=== PATIENT | male | born 1985 | race African-American/Black ===

== ENCOUNTER 2020-09-26 08:06 | Outpatient (REF) | payer MEDICAID, SELFPAY | END 2020-09-26 08:07 | disposition home or self-care (01) | LOC: HO.LAB 08:06 | PROVIDERS: PCP Family Medicine; Visit Provider Internal Medicine | DX: Z20.822 Contact with and (suspected) exposure to COVID-19 (principal) | CPT/HCPCS: 36415; C9803; U0003; U0005 ==

== ENCOUNTER 2020-10-05 08:05 | Outpatient (REF) | payer MEDICAID, SELFPAY | END 2020-10-05 08:06 | disposition home or self-care (01) | LOC: HO.LAB 08:05 | PROVIDERS: PCP Family Medicine; Visit Provider Internal Medicine | DX: Z20.822 Contact with and (suspected) exposure to COVID-19 (principal) | CPT/HCPCS: 36415; C9803; U0003; U0005 ==

== ENCOUNTER 2020-11-03 08:38 | Emergency (ER) | payer MEDICAID, SELFPAY ==
--- NOTE | 2020-11-03 08:59 | ED.URI ---
HPI - URI/Sore Throat General Chief Complaint: Upper Respiratory Symptoms Stated Complaint: COUGH BODY ACHES Time Seen by Provider: 11/03/20 08:59 Source: patient Mode of arrival: ambulatory Limitations: no limitations History of Present Illness HPI Narrative: Here for COVID test found out yesterday family visiting from [place] to that house tested positive and they been mild body aches. Onset (ago): day(s) Severity: mild Able to tolerate fluids by mouth: Yes Exacerbating factors: nothing Associated symptoms: denies other symptoms Treatments prior to arrival: none Related Data Allergies Allergy/AdvReac Type Severity Reaction Status Date / Time No Known Allergies Allergy Unverified 04/27/20 15:44 Review of Systems Review of Systems: Constitutional: No Weight loss, No Fever, No Chills, No Night Sweats, No Fatigue, No Malaise ENT/Mouth: No Hearing loss, No Ear Pain, No Nasal Congestion, No Sinus Pain, No Hoarseness, No sore throat, No Rhinorrhea, No Swallowing Difficulty Eyes: No Eye Pain, No Swelling, No Redness, No Foreign Body, No Discharge, No Vision Changes Cardiovascular: No Chest Pain, No SOB, No Dyspnea on Exertion, No Orthopnea, No Edema, No Palpitations Respiratory: No Cough, No Sputum, No Wheezing, No Smoke Exposure, No Dyspnea Gastrointestinal: No Nausea, No Vomiting, No Diarrhea, No Constipation, No abdominal Pain, No Hematochezia, No Melena Genitourinary: No Dysuria, No Urinary Frequency, No Hematuria, No Urinary Incontinence, No Urgency, No Flank Pain, No Urinary Flow Changes, No Hesitancy Musculoskeletal: No joint pain, No Joint Swelling Skin: No Skin Lesions, No rash Neuro: No Weakness, No Numbness, No Paresthesias, No Loss of Consciousness, No Dizziness, No Headache Psych: No Social Issues Heme/Lymph: No Bruising, No Bleeding,No Lymphadenopathy Endocrine: No Polyuria, No Polydipsia, No Temperature Intolerance Yes all other systems are reviewed and are negative Physical Exam Vital Signs: Vital Signs: Reviewed Const: General: cooperative and healthy appearing; No acute distress or intoxicated appearing Nutritional Appearance: average body habitus Orientation/consciousness: patient oriented x3 HENMT: Head: Yes normal to inspection Ears: hearing grossly normal bilaterally Eyes: General: appearance normal, both eyes and all related structures Visual Drummond: normal visual drummond by confrontation Neck: Neck: Yes normal visual inspection, No positive Brudzinski's sign, No positive Kernig's sign and No tender Thyroid: Thyroid normal Resp: Effort & Inspection: normal respiratory effort Auscultation: clear to auscultation bilaterally Cardio: Jugular venous distension: no JVD Rhythm: regular rhythm Heart sounds: S1 normal heart sound present and S2 normal heart sound present Skin: General skin exam: no rashes or lesions noted Neuro: General: patient oriented x3 Extrem: General: Yes normal to inspection Course Course Course Narrative: Confirm contact over the past several days. Aware that even if today's test is negative muscular 18 for 14 days as there is a possibility of early/false negative. Discharge Plan Discharge Clinical Impression: COVID-19 Patient Disposition: Home, Self-Care Instructions: COVID-19 (Coronavirus Disease 2019) (ED) Additional Instructions: Given her confirm contact with individuals that are staying in a house with COVID-19 You must quarantine for the full 14 days Your COVID-19 test pending and will result in 1 hour will call you with results Supportive care discussed Return if any concerns or worsening symptoms Thank you Referrals: Adriana Lundberg MD [Primary Care Provider] - 2 weeks (Phone visit) Stand Alone Forms: Work/School Release
[2020-11-03 09:04] VITALS: BP 141/89; PULSE 88; RESP 18; TEMP 36.7; O2SAT 97; BMI 27.4
[2020-11-03 09:52] LABS: COVID-19 Test Positive (Negative)
== END 2020-11-03 09:32 | disposition home or self-care (01) ==
PROVIDERS: Nurse Practitioner Primary Care; Emergency Provider Emergency Medicine Emergency Medical Services; PCP Family Medicine
DX: U07.1 COVID-19 (principal); R05 Cough; M79.10 Myalgia, unspecified site
CPT/HCPCS: 36415; 87635; 99283

== ENCOUNTER 2020-11-22 13:47 | Outpatient (REF) | payer MEDICAID, SELFPAY ==
[2020-11-22 15:09] LABS: COVID-19 Test Negative (Negative)
== END 2020-11-22 13:48 | disposition home or self-care (01) ==
LOC: HO.LAB 13:47
PROVIDERS: Visit Provider Internal Medicine
DX: Z20.822 Contact with and (suspected) exposure to COVID-19 (principal)
CPT/HCPCS: 36415; 87635; C9803

== ENCOUNTER 2022-11-15 09:59 | Outpatient (REF) | payer MEDICAID, SELFPAY ==
--- NOTE | ~2022-11-15 | US_ITS ---
EXAMINATION: US RETROPERITONEAL COMPLETE (RENAL) CLINICAL INFORMATION: Hematuria. COMPARISON: Previous CT of the abdomen and pelvis July 2017 TECHNIQUE: Real-time imaging of the kidneys and bladder. FINDINGS: RIGHT KIDNEY: 9.7 x 4.5 x 6.9 cm (SAG x AP x TRV). The kidney is normal in size, contour, and echogenicity. Renal cortical thickness is normal. No calculi or focal parenchymal lesions. No hydronephrosis. LEFT KIDNEY: 9.8 x 5.9 x 5.7 cm (SAG x AP x TRV). The kidney is normal in size, contour, and echogenicity. Renal cortical thickness is normal. No calculi or focal parenchymal lesions. No hydronephrosis. BLADDER: Well distended and normal. Bilateral ureteral jets are demonstrated. Prevoid bladder volume is 175 mL. Postvoid bladder volume is 2 mL. The prostate is normal in size. US/US retroperitoneal comp IMPRESSION: Normal renal and bladder ultrasound.
== END 2022-11-15 10:00 | disposition home or self-care (01) ==
LOC: HO.US 09:59
PROVIDERS: PCP Family Medicine; Visit Provider Student in an Organized Health Care Education/Training Program
DX: R31.9 Hematuria, unspecified (principal)
CPT/HCPCS: 76770

== ENCOUNTER 2023-12-17 11:53 | Outpatient (REF) | payer MEDICAID, SELFPAY ==
[2023-12-17 13:42] LABS: Anion Gap 13 (12-20); Blood Urea Nitrogen 10 mg/dL (9-16); Calcium 9.2 mg/dL (8.4-10.2); Carbon Dioxide 23 mmol/L (22-29); Chloride 108 mmol/L (96-108); Cholesterol 172 mg/dL (<200); Estimated Glomerular Filt Rate > 60; Glucose Random 92 mg/dL (60-115); HDL Cholesterol 30 mg/dL (>40); LDL Cholesterol Calculated 115 mg/dL (<100); Potassium 4.1 mmol/L (3.3-5.1); Sodium 140 mmol/L (135-145); Triglycerides 137 mg/dL (<150)
[2023-12-17 15:51] LABS: CT PCR NOT DETECTED (Not Detect.); NG PCR NOT DETECTED (Not Detect.)
[2023-12-18 04:25] LABS: HIV AB/AG Nonreactive (Nonreactive); HIV Num 1 0.04 S/CO (0.00-0.99); ~HepC Num1 0.11 S/CO (0.00-0.79); ~Hepatitis C Antibody Nonreactive (Nonreactive)
[2023-12-18 11:59] LABS: RPR Rapid Plasma Reagin NON-REACTIVE (NON-REACTIVE)
== END 2023-12-17 11:54 | disposition home or self-care (01) ==
LOC: HO.HHCL 11:53
PROVIDERS: Visit Provider Family Medicine
DX: E78.5 Hyperlipidemia, unspecified (principal); Z11.3 Encounter for screening for infections with a predominantly sexual mode of transmission
CPT/HCPCS: 0353U; 36415; 80048; 80061; 86592; 86803; 87389

== ENCOUNTER 2023-12-30 09:51 | Outpatient (AMB) | payer MEDICAID, SELFPAY ==
--- NOTE | 2023-12-30 09:52 | A.OFFVIS_ITS ---
Intake Visit Reasons: cyst on scrodum Intake Note: Patient referred by PCP Dr. Zavala for cyst on scrotum. Present for 4yrs. Patient c/o: cyst has been enlarging. Denies pain, oozing, redness. Facility Maintenance Helper Required: No Accompanied by: Self / Same As Patient Allergies No Known Allergies Allergy (Unverified 12/30/23 09:56) HPI Comments Details: Patient presents for evaluation of an enlarging left scrotal cyst. He has had this approximately 3 years time. It is increasing in size and become more symptomatic. He would like to have removed. He has no such lesions elsewhere. Chart was reviewed and patient evaluated [facility] Social History (Updated 12/30/23 @ 09:57 by FRANKIE Barajas) Patient Tobacco Use Status: Current someday Tobacco user Tobacco use type: Cigarette Cigarette Packs Per Day: 2 Physical Exam Chest Other: Chest breath sounds bilaterally, HS 1 in 2 GI Other: Abdomen is soft, benign Other: Proximally 3 x 2 cm left scrotal cyst. No other gross pathology demonstrated. Assessment & Plan Assessment & Plan (1) Scrotal sebaceous cyst: Code(s): L72.3 - Sebaceous cyst Category: Surgical Plan Risks, benefits, alternatives of wide local excision of left scrotal cyst were reviewed the patient and included but not limited to bleeding, infection, recurrence, numbness, pain, scarring the patient was to proceed. All questions answered. Arrangements were made for this. Coding Level of Care Code New Pt Level 5 (36365) Diagnoses Scrotal sebaceous cyst L72.3
== END 2023-12-30 10:10 | disposition home or self-care (01) ==
PROVIDERS: PCP Family Medicine; Referring Provider Family Medicine; Visit Provider Surgery
DX: L72.3 Sebaceous cyst (principal)
CPT/HCPCS: 99204

== ENCOUNTER → 2023-12-30 09:51 | Outpatient (BNVA) | payer MEDICAID, SELFPAY | PROVIDERS: PCP Family Medicine; Visit Provider Surgery | DX: L72.3 Sebaceous cyst (principal) | CPT/HCPCS: 99202 ==

== ENCOUNTER 2024-01-23 06:54 | Day surgery (SDC) | payer MEDICAID, SELFPAY ==
[2024-01-21 10:57] VITALS: BMI 25.9
--- NOTE | 2024-01-21 12:47 | HO.ANESPROP2 ---
Documented by User: Nati Garcia NP 01/21/24 12:48 HPI - Anesthesia Eval Consult details Narrative: 38yo M for Left Wide Local Excision Scrotal Cyst PMFSH Active Problems Active Problems: All Active Problems Scrotal sebaceous cyst (Acute) COVID-19 (Acute) Past Medical History Medical History (Updated 01/23/24 @ 08:40 by Zahra Eden MD) Tooth abscess Coma Renal calculi Anxiety Social History Social History (Updated 01/23/24 @ 08:41 by Zahra Eden MD) Patient Tobacco Use Status: Current everyday Tobacco user Tobacco use type: Cigarette Cigarette Packs Per Day: 2 Substance Use Type: Marijuana Meds Allergies Allergy/AdvReac Type Severity Reaction Status Date / Time No Known Allergies Allergy Verified 01/23/24 07:14 Exam Height,Weight and Vital Signs: Height 5 ft 4 in Weight 68.4 kg Pertinent Lab Results Pertinent Lab Results: Laboratory Tests 12/17/23 11:55 Sodium 140 Potassium 4.1 Chloride 108 Carbon Dioxide 23 BUN 10 Creatinine 1.05 Assessment and Plan Assessment Anesthesia Assessment: Chart Reviewed Documented by User: Zahra Eden MD 01/23/24 08:58 PMFSH Active Problems Active Problems: All Active Problems Scrotal sebaceous cyst (Acute) COVID-19 (Acute) Smoker- last cigarette this morning Marijuana-daily. Last use yesterday Past Medical History Medical History (Updated 01/23/24 @ 08:40 by Zahra Eden MD) Tooth abscess Coma Renal calculi Anxiety Family History Family history of problems with anesthesia: No Surgical History History of Problems with Anesthesia: Yes Social History Social History (Updated 01/23/24 @ 08:41 by Zahra Eden MD) Patient Tobacco Use Status: Current everyday Tobacco user Tobacco use type: Cigarette Cigarette Packs Per Day: 2 Substance Use Type: Marijuana Meds Allergies Allergy/AdvReac Type Severity Reaction Status Date / Time No Known Allergies Allergy Verified 01/23/24 07:14 Exam Height,Weight and Vital Signs: Height 5 ft 4 in Weight 68.4 kg Vital Signs Temp Pulse Resp BP Pulse Ox O2 Del Method 01/23/24 06:57 97.3 F 86 20 142/91 H 98 Room Air Airway Mallampati Class: II TM Dist: >3cm Neck ROM: Full Loose/Missing/Broken Teeth: Yes (Extraction 1 bottom right, 1 bottom left. Denies broken or loose teeth) Heart: RRR Lungs: CTAB Assessment and Plan Assessment Anesthesia Assessment: Anesthesia Plan Discussed and Chart Reviewed Final Anesthetic Review Family History of Problems with Anesthesia: No History of Problems with Anesthesia: Yes NPO: Yes ASA Class: II Final Preanesthetic Review: No Changes in Pt Med Stat, Meds/Allgs Chart Reviewed, Consent Obtained/Reviewed and Anes Risks/Benef Reviewed Patient Risk: Intermediate Procedure Risk: Low Assessment/Block/Sedation in SS: Assess/Block/Sedation-SS Anesthetic Plan Anesthetic Plan: GA Disposition: Standard PACU
--- NOTE | 2024-01-22 10:08 | MHC.SHP ---
Pre-Procedural Eval Section A - 24 Hr Update-Section A only Date of Service: 01/23/24 The patient is an INPATIENT: No Changes since office visit: No Cold of Flu in the past 2 weeks, No New Medical Problems, No Changes in Medication and No Patient answered all questions Section B - Complete if H&P > 30 days Chief Complaint: Sebaceous cyst Allergies: Allergies Allergy/AdvReac Type Severity Reaction Status Date / Time No Known Allergies Allergy Unverified 12/30/23 09:56 Plan I have reviewed the history and physical and performed a pertinent physical examination on my patient. No changes have occurred unless specified. Time Spent With Patient Time: Total time managing care of this patient today ____ minutes.
[2024-01-23] VITALS (8 sets, daily range): BP systolic 90–142; BP diastolic 50–91; PULSE 65–86; RESP 14–20; TEMP 36.3–36.6; O2SAT 95–100; BMI 26.2
--- NOTE | 2024-01-23 07:15 | PC.NURSE ---
pt okay with mac
[2024-01-23] MEDS: Lactated Ringers 1,000 ML 100 ML IVCONT (07:19)
--- NOTE | 2024-01-23 09:19 | W.PM.OPN ---
Operative Note Operative Note Date of Service: 01/23/24 Narrative: Preoperative diagnosis: [] Left scrotal cyst Postop diagnosis: [] The same Procedure [] excision left scrotal cyst Surgeon; Bonilla Project Manager Retail: [] Type of Anesthesia: [] General Indication for surgery: [] apProximally 2 x 2 cm left scrotal cyst Findings: [] Patient brought to the operating room, placed on operative table supine position, after an adequate level of general anesthesia was induced, the scrotum was prepped and draped in usual sterile fashion. Using a transverse by elliptical incision, Cyst was uneventfully excised using Bovie and sent to pathology. Wound was irrigated, secured hemostasis, and closed using interrupted inverted dermal 3-0 Vicryl sutures followed by Steri-Strips and sterile dressings. Wound was infiltrated the beginning at the end with 0.5% Marcaine. Sponge, needle, and instrument counts reported correct. Patient tolerated the procedure well and emerged from anesthesia stable condition. EBL minimal
== END 2024-01-23 10:50 | disposition home or self-care (01) ==
PROVIDERS: Visit Provider Surgery
PROC: (CPT 11422; principal; 2024-01-23 08:50)
DX: L72.3 Sebaceous cyst (principal)
CPT/HCPCS: 11422; 88304; J0690; J1100; J2250; J2405; J2704; J2795; J3010

== ENCOUNTER → 2024-01-23 06:54 | Outpatient (BNV) | payer MEDICAID, SELFPAY | PROVIDERS: Visit Provider Surgery | DX: L94.2 Calcinosis cutis (principal) | CPT/HCPCS: 11422 ==

== ENCOUNTER 2024-02-02 09:31 | Outpatient (AMB) | payer MEDICAID, SELFPAY ==
--- NOTE | 2024-02-02 09:54 | MHC.OFFVIS ---
Intake Visit Reasons: S/P WLE Left scrotal cyst Intake Note: Patient here s/p WLE lt scrotal cyst. Reports incision healing well. Patient c/o: denies oozing, pain. No longer taking rx pain meds. EXC 01-23-2024. Saw Sharpener Required: No Accompanied by: Self / Same As Patient Allergies No Known Allergies Allergy (Verified 02/02/24 09:54) HPI Comments Details: Patient presents for follow-up. He has no wound issues or complaints. Pathology was benign [facility] Medical History (Updated 02/02/24 @ 10:02 by Elmer Crystal MD) Tooth abscess Coma Renal calculi Anxiety Surgical History (Updated 01/29/24 @ 14:00 by FRANKIE Barajas) Hx of surgical procedure (01/23/24) Social History (Updated 01/23/24 @ 08:41 by Zahra Eden MD) Patient Tobacco Use Status: Current everyday Tobacco user Tobacco use type: Cigarette Cigarette Packs Per Day: 2 Substance Use Type: Marijuana Physical Exam Other: Scrotal incision clean dry and intact healing very well Assessment & Plan Assessment & Plan (1) Postop check: Code(s): Z09 - Encounter for follow-up examination after completed treatment for conditions other than malignant neoplasm Category: Medical Plan Patient has been given local wound instructions, and will follow-up p.r.n.. All questions answered Coding Level of Care Code Global (32293) Diagnoses Postop check Z09
== END 2024-02-02 10:00 | disposition home or self-care (01) ==
PROVIDERS: PCP Family Medicine; Visit Provider Surgery
DX: Z09 Encounter for follow-up examination after completed treatment for conditions other than malignant neoplasm (principal)
CPT/HCPCS: 99024

== ENCOUNTER → 2024-02-02 09:31 | Outpatient (BNVA) | payer MEDICAID, SELFPAY | PROVIDERS: PCP Family Medicine; Visit Provider Surgery | DX: Z09 Encounter for follow-up examination after completed treatment for conditions other than malignant neoplasm (principal) | CPT/HCPCS: 99212 ==

== ENCOUNTER 2024-02-10 10:28 | Outpatient (AMB) | payer MEDICAID, SELFPAY ==
--- NOTE | 2024-02-10 10:35 | A.OFFVIS_ITS ---
Intake Visit Reasons: wound check , pus s/p WLE Lt scrotal cyst Intake Note: Patient here for wound check. Patient c/o: yellowish discharge, pus from Lt scrotum. Tenderness. SX: Lt scrotal cyst~ 01-23-24 Personnel Clerks Supervisor Required: No Accompanied by: Self / Same As Patient Allergies No Known Allergies Allergy (Verified 02/10/24 10:39) HPI Comments Details: Patient presents for follow-up. He noticed some discharge from his incision. It has been going on for couple of days time [facility] Medical History (Updated 02/02/24 @ 10:02 by Elmer Crystal MD) Tooth abscess Coma Renal calculi Anxiety Surgical History (Updated 02/10/24 @ 10:48 by Elmer Crystal MD) Hx of surgical procedure (01/23/24) Social History (Updated 01/23/24 @ 08:41 by Zahra Eden MD) Patient Tobacco Use Status: Current everyday Tobacco user Tobacco use type: Cigarette Cigarette Packs Per Day: 2 Substance Use Type: Marijuana Physical Exam Other: Patient incision is clean dry and intact. He has a small stitch abscess. He was reassured. Wound was expressed and bacitracin dressing applied. Assessment & Plan Assessment & Plan (1) Postoperative stitch abscess: Code(s): T81.41XA - Infection following a procedure, superficial incisional surgical site, initial encounter Category: Surgical Plan Patient has been given local instructions including bacitracin each day and and hopefully this process will resolve in the next several days time. Should this persist or worsen, patient instructed to contact the office. Otherwise he will follow-up p.r.n. all questions answered. Coding Level of Care Code Global (29103) Diagnoses Postoperative stitch abscess T81.41XA
== END 2024-02-10 10:50 | disposition home or self-care (01) ==
PROVIDERS: PCP Family Medicine; Visit Provider Surgery
DX: T81.41XA Infection following a procedure, superficial incisional surgical site, initial encounter (principal)
CPT/HCPCS: 99024

== ENCOUNTER → 2024-02-10 10:28 | Outpatient (BNVA) | payer MEDICAID, SELFPAY | PROVIDERS: PCP Family Medicine; Visit Provider Surgery | DX: T81.41XD Infection following a procedure, superficial incisional surgical site, subsequent encounter (principal); X58.XXXD Exposure to other specified factors, subsequent encounter; Z87.2 Personal history of diseases of the skin and subcutaneous tissue | CPT/HCPCS: 99212 ==

== ENCOUNTER 2024-03-01 09:10 | Outpatient (AMB) | payer MEDICAID, SELFPAY ==
--- NOTE | 2024-03-01 09:18 | A.OFFVIS_ITS ---
Intake Visit Reasons: wound check , protruding sutures Intake Note: Patient here for wound check, c/o protruding sutures. SX: Lt scrotal cyst excision on 01-23-2024. Wiener Packer Required: No Accompanied by: Self / Same As Patient Allergies No Known Allergies Allergy (Verified 03/01/24 09:18) HPI Comments Details: Patient is extruding a suture from a scrotal wound. No other wound issues or complaints PFSH Medical History Tooth abscess Coma Renal calculi Anxiety Surgical History Hx of surgical procedure (01/23/24) Social History Patient Tobacco Use Status: Current everyday Tobacco user Tobacco use type: Cigarette Cigarette Packs Per Day: 2 Substance Use Type: Marijuana Physical Exam Other: Scrotal wound clean dry and intact. Two extruding sutures uneventfully removed. Well tolerated Assessment & Plan Assessment & Plan (1) Extruding suture: Code(s): T81.30XA - Disruption of wound, unspecified, initial encounter Category: Surgical Plan Patient has been given local instructions, and will follow-up p.r.n.. All questions answered Coding Level of Care Code Global (19202) Diagnoses Extruding suture T81.30XA
== END 2024-03-01 09:24 | disposition home or self-care (01) ==
PROVIDERS: PCP Family Medicine; Visit Provider Surgery
DX: T81.30XA Disruption of wound, unspecified, initial encounter (principal)
CPT/HCPCS: 99024

== ENCOUNTER → 2024-03-01 09:10 | Outpatient (BNVA) | payer MEDICAID, SELFPAY | PROVIDERS: PCP Family Medicine; Visit Provider Surgery | DX: T81.30XA Disruption of wound, unspecified, initial encounter (principal); X58.XXXA Exposure to other specified factors, initial encounter; Y93.9 Activity, unspecified; Y92.9 Unspecified place or not applicable; Y99.9 Unspecified external cause status; Z09 Encounter for follow-up examination after completed treatment for conditions other than malignant neoplasm | CPT/HCPCS: 99212 ==

== ENCOUNTER 2025-01-08 08:27 | Outpatient (REF) | payer MEDICAID, SELFPAY ==
[2025-01-08 10:00] LABS: Anion Gap 13 (12-20); Blood Urea Nitrogen 18 mg/dL (9-16); Calcium 9.7 mg/dL (8.4-10.2); Carbon Dioxide 24 mmol/L (22-29); Chloride 109 mmol/L (96-108); Cholesterol 201 mg/dL (<200); Estimated Glomerular Filt Rate > 60; Glucose Random 90 mg/dL (60-115); HDL Cholesterol 32 mg/dL (>40); LDL Cholesterol Calculated 122 mg/dL (<100); Sodium 142 mmol/L (135-145); Triglycerides 238 mg/dL (<150)
[2025-01-08 11:43] LABS: CT PCR NOT DETECTED (Not Detect.); NG PCR NOT DETECTED (Not Detect.)
[2025-01-09 03:45] LABS: HIV AB/AG Nonreactive (Nonreactive); HIV Num 1 0.06 S/CO (0.00-0.99); ~HepC Num1 0.14 S/CO (0.00-0.79); ~Hepatitis C Antibody Nonreactive (Nonreactive)
[2025-01-10 10:48] LABS: RPR Rapid Plasma Reagin NON-REACTIVE (NON-REACTIVE)
== END 2025-01-08 08:28 | disposition home or self-care (01) ==
LOC: HO.LAB 08:27
PROVIDERS: PCP Family Medicine; Visit Provider Family Medicine
DX: N20.0 Calculus of kidney (principal); Z11.3 Encounter for screening for infections with a predominantly sexual mode of transmission; E78.00 Pure hypercholesterolemia, unspecified
CPT/HCPCS: 80048; 80061; 86592; 86803; 87389; 87491; 87591

== ENCOUNTER 2025-02-24 12:46 | Outpatient (REF) | payer MEDICAID, SELFPAY | END 2025-02-24 12:47 | disposition home or self-care (01) | LOC: HO.LNP 12:46 | PROVIDERS: PCP Family Medicine; Visit Provider Nurse Practitioner Family | DX: Z13.9 Encounter for screening, unspecified (principal); N20.0 Calculus of kidney; F17.200 Nicotine dependence, unspecified, uncomplicated; R31.29 Other microscopic hematuria | CPT/HCPCS: 81003; 88112; 99212 ==

== ENCOUNTER 2025-02-24 12:46 | Outpatient (AMB) | payer MEDICAID, SELFPAY ==
--- NOTE | 2025-02-24 12:58 | A.OFFVIS_ITS ---
Intake Visit Reasons: kidney stones Intake Note: New Patient presents for initial visit for kidney stones Urology Medications: none Blood Thinner: none Smoker: Yes; about 20yrs Peer Educator Required: No Accompanied by: Self / Same As Patient Allergies No Known Allergies Allergy (Verified 02/24/25 13:36) Medication List - Last Reconciled 02/24/25 by JAVIER Moses ibuprofen 800 mg PO Q8H PRN HPI Comments Details: Blane is a very pleasant 39-year-old male patient of Dr. Lundberg. He has a past medical history of nephrolithiasis, anxiety, and nicotine dependence. He presents to the office today as a new patient for nephrolithiasis. In discussion with the patient today he reports seeking emergency room care at [facility] approximately 2 months ago at which time he was diagnosed with nephrolithiasis and recommendations were made for follow-up with urology and PCP. He reports he has since followed up with his PCP and was referred to today's appointment. He does report a previous history of nephrolithiasis however never requiring surgical intervention. He reports pain he had been experiencing has since subsided. I was able to obtain previous CT from 12/27/2024 that noted there is a punctate stone at the left UVJ without upstream hydroureter. No hydronephrosis, intrarenal stones, or noncontrast evidence of suspicious masses. The bladder is underdistended. Per radiology report. We did discussed potential causes of nephrolithiasis as well as microscopic hem aturia. In office urinalysis results reviewed with the patient today. 2+ microscopic hematuria. He does report over a 20 year smoking history. He reports smoking approximately 1 pack of cigarettes per day as well as recreational marijuana. I discussed reasons for blood in the urine may include but are not limited to kidney stones, cancer in the urinary tract, BPH, kidney stone disease or inflammatory conditions of the urinary tract. I have discussed workup to include cystoscopy evaluation. He he denies any bothersome urinary issues. He denies urinary urgency, urinary frequency, incontinence, nocturia, gross/visible hematuria, dysuria, foul smelling urine, changes to urinary stream, flank pain, fever, and or chills. He is happy with his current voiding parameters. [facility] Medical History Tooth abscess Coma Renal calculi Anxiety Surgical History Hx of surgical procedure (01/23/24) Social History Patient Tobacco Use Status: Current everyday Tobacco user Tobacco use type: Cigarette Cigarette Packs Per Day: 2 Substance Use Type: Marijuana Review of Systems Const All systems reviewed & are unremarkable except as noted in HPI and below Physical Exam Const General: cooperative, healthy appearing, comfortable, no acute distress, well developed, alert and awake Orientation/consciousness: patient oriented x3 Limitations: no limitations HEENT Head: Yes normal to inspection, Yes normocephalic and Yes atraumatic Ears: hearing grossly normal bilaterally Eyes General: appearance normal, both eyes and all related structures Neck Neck: Yes normal visual inspection and Yes trachea midline Chest Chest palpation & inspection: normal inspection of the chest Resp Effort & Inspection: normal respiratory effort and able to speak in complete sentences Cardio Rate: regular rate GI Inspection: Yes normal to inspection General: Yes no CVA tenderness Back/Spine/Pelvis Back: no CVA tenderness Skin General skin exam: no rashes or lesions noted Neuro General: patient oriented x3 Extrem General: Yes normal to inspection Psych Appearance: grossly normal and well kempt Mental Status: mental status grossly normal Speech and movement: Normal speech and movement present and Clear speech present Affect: normal affect Attitude: cooperative Thought process: Normal thought process present Thought content: Normal thought content present Insight: Fair insight present (Psych) Judgement: Fair judgement present (Psych) Results AMB Urinalysis, Automated UA Leukoctes 0 Kristina/uL Last Edit by MARY JO Mccullough on 02/24/25 13:09 UA Nitrite Last Edit by MARY JO Mccullough on 02/24/25 13:09 UA Urobilinogen 0.2 mg/dL Last Edit by MARY JO Mccullough on 02/24/25 13:0 9 UA Protein 30 mg/dL Last Edit by Christoph Tesfaye, [facility] on 02/24/25 13:09 UA pH 6.0 Last Edit by Christoph Tesfaye, [facility] on 02/24/25 13:09 UA Blood 80 Junito/uL Last Edit by Christoph Tesfaye, [facility] on 02/24/25 13:09 UA Specific [place] 1.015 Last Edit by Christoph Tesfaye, [facility] on 02/24/25 13: 09 UA Ketone Last Edit by Christoph Tesfaye, [facility] on 02/24/25 13:09 UA Bilirubin 1 mg/dL Last Edit by Christoph Tesfaye, [facility] on 02/24/25 13:09 UA Glucose 0 mg/dL Last Edit by Christoph Tesfaye, [facility] on 02/24/25 13:09 Results Reviewed Results Reviewed: Laboratory Last Values Urine pH (Auto) 6.0 02/24/25 13:08 Specific [place] (Auto) 1.015 02/24/25 13:08 Urine Protein (Auto) 30 mg/dL 02/24/25 13:08 Glucose (UA)(Auto) 0 mg/dL 02/24/25 13:08 Urine Blood (Auto) 80 Junito/uL 02/24/25 13:08 Urine Bilirubin (Auto) 1 mg/dL 02/24/25 13:08 Urine Urobilinogen (Auto) 0.2 mg/dL 02/24/25 13:08 Leukocyte Esterase (Auto) 0 Kristina/uL 02/24/25 13:08 Assessment & Plan Assessment & Plan (1) Renal calculi: Code(s): N20.0 - Calculus of kidney Category: Medical (2) Microscopic hematuria: Code(s): R31.29 - Other microscopic hematuria Category: Medical (3) Nicotine dependence: Code(s): F17.200 - Nicotine dependence, unspecified, uncomplicated Category: Medical Plan In office urinalysis results reviewed with the patient today; as noted above; will send for urine cytology. Recent CT results were reviewed with the patient today; as noted above. Will obtain retroperitoneal ultrasound for further assessment evaluation. We discussed at length potential causes of nephrolithiasis as well as microscopic hematuria; we discussed further workup and interventions in risks and benefits of these interventions. We discussed the importance of adequate hydration relation to nephrolithiasis as well as overall health and well-being. We discussed and stressed the importance of limiting/quitting nicotine dependence for overall health and well-being. We discussed adding 1 oz of lemon juice to water daily. He currently denies any bothersome urinary issues. He reports be happy with current voiding parameters. Follow-up in 1-3 months with imaging to be completed prior; or sooner with any issues, concerns, and or questions. Orders: Orders Urine Cytology 02/24/25 R31.29 - Other microscopic hematuria US retroperitoneal comp 02/24/25 F17.200 - Nicotine dependence, unspecified, uncomplicated, N20.0 - Calculus of kidney, R31.29 - Other microscopic hematuria AMB Urinalysis Automated 02/24/25 Z13.9 - Encounter for screening, unspecified Patient Instructions: The patient had an opportunity to ask questions regarding the treatment plan. All questions were answered. Physical exam, labs, and imaging were discussed and reviewed in detail. As well as risks, benefits, and discussion of treatment choices. No major barriers to understanding were identified. The patient expressed understanding and agreement with the above treatment plan. The patient was made aware they should contact our office by phone for worsening of their current condition, the appearance of new symptoms, or with any questions or concerns. Compliance is encouraged with any medications and follow up testing that is ordered. It is a privilege to be allowed the opportunity to participate in? your urological care.? Again, if you have any questions or concerns If you have any questions or concerns please do not hesitate to contact me. The office is [phone]. This note is constructed using voice recognition software. While every effort has been made to ensure accuracy patient registration manager errors may have been included. Yours sincerely, JAVIER Moses Coding Level of Care Code New Pt Level 3 (46292) Diagnoses Renal calculi N20.0 Microscopic hematuria R31.29 Nicotine dependence F17.200
--- OUTSIDE RECORDS SUMMARY | 2025-02-24 13:12 | XMS_ITS | Encounter Summary ---
Author Organization [employer] Address [address] [facility] [address] [place] [address] Care Team Providers Care Roll Slicing Machine Tender Name Role Phone Adriana Lundberg MD Primary Care Provider + [phone] Elmer Crystal MD Unavailable [phone] Roya Tsai PharmD Unavailable [phone] Encounter Details Date Type Department Care Team (Late st Contact Info) Description 09/01/2024 Orders Only [facility] [address] [place], [place] [id number] Adriana Lundberg MD [address] [place], [place] [id number] Dietary counseling; Exercise counseling; Overweight Social History Tobacco Use Types Packs/Day Years Used Date Smoking Tobacco: Every Day Cigarettes Passive Smoke Exposure: Current Smokeless Tobacco: Never Depression Answer Date Recorded Patient Health Questionnaire-9 Score 0 12/17/2023 Patient Health Questionnaire-9 Score 0 12/17/2023 Last PHQ-9: Questionnaire Data Not on file 0 12/17/2023 Housing Stability Answer Date Recorded What is your housing situation today? I have luiza borrego 12/17/[address] you li ve. Do you have problems with any of the following? None of the above 12/17/2023 Food Insecurity Answer Date Recorded Within the past 12 months, y ou worried that your food would run out before you got money to buy more: Never True 12/17/2023 Within the past 12 months,th e food you bought just didn't last and you didn't have enough money to get more: Never True 03/2024 Transportation Answer Date Recorded In the past 12 months, has l ack of transportation kept you from medical appts, meetings, work or from getting things needed for daily living? No 12/17/2023 Utilities Answer Date Recorded In the past 12 months, has t he electric, gas, oil or water company threatened to shut off services in your home? No 12/17/2023 Depression Answer Date Recorded Patient Health Questionnaire-2 Score 0 12/17/2023 Sex and Gender Information Value Date Recorded Sex Assigned at Male 06/10/2022 10:15 AM EDT Legal Sex Male 10:15 AM EDT Gender Identity Male 06/10/2022 10:15 AM EDT Sexual Orientation Straight 06/10/2022 10 :15 AM EDT documented as of this encounter Plan of Treatment Not on file documented as of this encounter Visit Diagnoses Diagnosis Dietary counseling Dietary surveillance and counseling Exercise counseling Overweight documented in this encounter Additional Health Concerns Assessment Noted Time PHQ-9 Depression Total Score: 0 12/17/19 24 10:50 AM EDT documented as of this encounter Care Teams Roll Slicing Machine Tender Relationship Specialty Start Date End Date Adriana Lundberg MD [address] [place] [address] PCP - General Family Medicine 08/11/18 Elmer Crystal MD [address] [place] [address] [address] [place] [address] General Surgery 09/01/24 Roya Tsai PharmD [address] [place] [address] Pharmacist Internal Medicine 01/19/25 documented as of this encounter
--- OUTSIDE RECORDS SUMMARY | 2025-02-24 13:12 | XMS_ITS | Clinical Summary ---
Author Organization [facility] Address [address] [place] [address] Phone Care Team Providers Care Santa'S Helper Name Role Phone Physician, No Pcp Primary Care Provider Unavaila ble Allergies No known active allergies Medications ibuprofen (ADVIL,MOTRIN) 600 mg tablet Take 1 tablet (600 mg total) by mouth every 6 (six) hours if needed for mild pain for up to 60 doses. 30 tablet Active pseudoephedrine (SUDAFED) 120 mg 12 hr tablet Take 1 tablet (120 mg total) by mouth every 12 (twelve) hours if needed for congestion for up to 14 days. Do not crush, chew, or split. 28 each Active Active Problems No known active problems Social History Tobacco Use Types Packs/Day Years Used Date Smoking Tobacco: Never Assessed Sex and Gender Information Value Date Recorded Sex Assigned at Male 09/21/2024 7:24 AM EST Legal Sex Male 10:20 AM EST Gender Identity Male 09/21/2024 7:24 AM EST Sexual Orientation Straight 09/21/2024 7: 24 AM EST Obstetrics History Last Filed Vital Signs Vital Sign Reading Time Taken Comments Blood Pressure 153/91 09/21/2024 5:41 AM EST Pulse 104 09/21/2024 5:41 AM EST Temperature 37.2 C (99 F) 09/21/2024 5:41 AM EST Respiratory Rate 18 09/21/2024 5:41 AM EST Oxygen Saturation 97% 09/21/2024 5:41 AM EST Inhaled Oxygen Concentration - - Weight 70.3 kg (155 lb) 09/21/2024 5:47 AM EST Height 160 cm (5' 3 ) 09/21/2024 5:47 AM EST Body Mass Index 27.46 09/21/2024 5:47 AM EST Plan of Treatment Health Maintenance Due Date Last Done Comments COVID-19 Vaccine ( season) 2024 12/17/2023, 12/11/2022 Social Influencers of Health Screening 09/21/2024 Depression Screening 12/16/2024 12/17/2023 Influenza Vaccine (#1) 2025 0, 10/14/2019, 08/27/2018, Additional history exists Cholesterol Screening (Lipid Panel) 12/16/2028 12/17/2023 DTaP,Tdap,and Td Vaccines (8 - Td or Tdap) 12/11/2032 12/11/2022, 06/06/2011, 04/16/1995, Additional history exists MMR Vaccines Completed 03/26/1994, 04/11/1991 HIB Vaccines Completed 04/16/1995, 11/1994, 05/11/1991 IPV Vaccines Completed 04/16/1995, 03/12, 04/11/1991, Additional history exists Hepatitis B Vaccines Completed 09/05/1997, 04/07/1996, 02/20/1995 Varicella Vaccines Aged Out 11/23/1999 No longer eligible based on patient's age to complete this topic HIV Screening Completed 12/17/2023 Hepatitis A Vaccines Completed 12/17/2023, 12/12/19 Hepatitis C Screening Completed 12/17/2023 Pneumococcal Vaccine: Pediatrics (0 to 5 Years) and At-Risk Patients (6 to 49 Years) Aged Out 12/17/2023 No longer eligible based on patient's age to complete this topic HPV Vaccines Aged Out No longer eligi ble based on patient's age to complete this topic Meningococcal ACWY Vaccine Aged Out N o longer eligible based on patient's age to complete this topic Meningococcal B Vaccine Aged Out No l onger eligible based on patient's age to complete this topic RSV Immunization Patients Under 20 months Aged Out No longer eligible based on patient's age to complete this topic Insurance MEDICAID - [place] Care Teams Santa'S Helper Relationship Specialty Start Date End Date Physician, No Pcp PCP - General 09/21/24
== END 2025-02-24 13:55 | disposition home or self-care (01) ==
LOC: HO.HUSH 12:47
PROVIDERS: PCP Family Medicine; Visit Provider Nurse Practitioner Family
DX: Z13.9 Encounter for screening, unspecified (principal)

== ENCOUNTER 2025-03-24 15:29 | Outpatient (REF) | payer MEDICAID, SELFPAY ==
--- NOTE | 2025-03-24 | PFT_ITS ---
Flows: FEV1: 109 % of predicted at 3.68 L FVC: 116 % of predicted at 4.78 L FEV1/FVC: 77 % Bronchodilator response: Absent Volumes: Total lung capacity: 128 % of predicted at 7.16 L Residual volume: 194 % of predicted at 2.43 L Slow vital capacity: 108 % of predicted at 4.73 L Expiratory reserve volume: 90 % of predicted at 1.01 L Diffusion capacity: Normal Impression: No obstructive or restrictive ventilatory defects. No bronchodilator response. Increased total lung capacity suggests hyperinflation. Increased residual volume suggests air trapping. MTDD
--- OUTSIDE RECORDS SUMMARY | 2025-03-24 15:52 | XMS_ITS | Clinical Summary ---
Author Organization [employer] Address [address] [facility] [address] [place] [address] Care Team Providers Care Dev Ops Engineer Name Role Phone Adriana Lundberg MD Primary Care Provider Elmer Crystal MD Unavailable [phone] Roya Tsai PharmD Unavailable Karyn Morales NP Unavailable Allergies No known active allergies Medications nicotine (Nicoderm CQ) 21 MG/24HR patchIndication s:Tobacco dependence syndrome Place 1 patch on the skin 1 (one) time each day at the same time. 42 patch 01/19/2025 Active nicotine (Nicoderm CQ) 14 MG/24HR patchIndication s:Tobacco dependence syndrome Place 1 patch on the skin 1 (one) time each day at the same time. 14 patch 01/19/2025 Active nicotine (Nicoderm CQ) 7 MG/24HR patchIndication s:Tobacco dependence syndrome Place 1 patch on the skin 1 (one) time each day at the same time. 14 patch 01/19/2025 Active nicotine polacrilex (Nicotine Mini) 2 MG lozengeIndicati ons:Tobacco dependence syndrome One lozenge PO Q 1-2 hours PRN first 6 weeks.Reduce to 1 lozenge PO every 2-4 hours PRN weeks 7-9 and finally, 1 lozenge PO every 4-8 hours PRN weeks 10 to 12 then stop.Max 5 lozenges/6 hours or 20 lozenges/day 100 lozenge 01/19/2025 Active Active Problems Problem Noted Date Diagnosed Date Elevated cholesterol 01/05/2025 Overview (01/05/2025): Lab Results Component Value Date CHOL 172 12/17/2023 TRIG 137 12/17/2023 TRIG 143 12/20/2022 HDL 30 (L) 12/17/2023 LDLCHOLCAL 115 (H) 12/17/2023 -continue lifestyle modification -ordered repeat 01/05/25 Assessment & Plan (01/05/2025 2:04 PM EDT): Lab Results Component Value Date CHOL 172 12/17/2023 TRIG 137 12/17/2023 TRIG 143 12/20/2022 HDL 30 (L) 12/17/2023 LDLCHOLCAL 115 (H) 12/17/2023 -continue lifestyle modification -ordered repeat 01/05/25 Other specified health status 02/05/2023 Overview (01/05/2025): -next physical exam due after 01/05/26 -eye care facilitated referral sent to [facility] 12/17/2023 -[facility] [place] [facility] [place] [facility] proxy filed 12/17/2023 Assessment & Plan (01/05/2025 2:05 PM EDT): -next physical exam due after 01/05/26 -eye care facilitated referral sent to [facility] 12/17/2023 -dental [facility] [place] [facility] [place] [facility] proxy filed 12/17/2023 Assessment & Plan (12/17/2023 11:11 AM EDT): -next physical exam due after 12/16/2024. -eye care facilitated referral sent to [facility] 12/17/2023 -d[facility] home [place] [facility] [place] [facility] proxy filed 12/17/2023 Other microscopic hematuria 12/11/2022 Overview (03/02/2025): -Renal and bladder US was normal on 11/15/2022. -Urine dipstick on 11/15/2022 has moderate blood. -Follow up with urology 12/20/2022. -02/25/25 Urine, cytology: Negative for high-grade urothelial carcinoma. Red blood cells are noted. There is no significant atypia seen. -note from Karyn Morales NP from 02/28/25 reviewed, retroperitoneal ultrasound ordered by urology Assessment & Plan (12/17/2023 11:25 AM EDT): -Renal and bladder US was normal on 11/15/2022. -Urine dipstick on 11/15/2022 has moderate blood. -Follow up with urology 12/20/2022. Assessment & Plan (12/11/2022 11:14 AM EDT): -Renal and bladder US was normal on 11/15/2022. -Urine dipstick on 11/15/2022 has moderate blood. -Follow up with urology 12/20/2022. Anxiety 08/27/2018 Cannabis dependence 08/27/2018 Overview (12/17/2023): -Pt reduced his intake of marijuana use, motivational interviewing Assessment & Plan (01/05/2025 2:12 PM EDT): -Pt reduced his intake of marijuana use, motivational interviewing Assessment & Plan (12/17/2023 1:20 PM EDT): -Pt reduced his intake of marijuana use, motivational interviewing Assessment & Plan (12/11/2022 8:56 AM EDT): PT reduced his intake of marijuana use, < 1x a night. Attributes decrease intake in attending worship. History of renal calculi 05/19/2017 Closed fracture of metatarsal bone 04/19/2013 Tobacco dependence syndrome 05/13/2012 Overview (01/05/2025): -Cigg/day: 20 per day down to 10 -down to 3 cigarettes a day as of 12/17/2023 -Age started: 17 -Total years smokin -Pack year history: 17 Encouraged smoking cessation resources such as pharmacomtherapy, [facility] smoking cessation group, and [facility] pharmacy smoking cessation clinic -Referral to [facility] 01/05/25. Discussed USPSTF recommends annual lung cancer screening with low dose CT in people who meet the following criteria: -ages 50 to 80 years. -have a 20 pack-year smoking history. -currently smoke cigarettes or quit within the past 15 years. -LDCT: na -ordered PFTs 01/05/2025 Assessment & Plan (01/05/2025 2:18 PM EDT): -Cigg/day: 20 per day down to 10 -down to 3 cigarettes a day as of 12/17/2023 -Age started: 17 -Total years smokin -Pack year history: 17 Encouraged smoking cessation resources such as pharmacomtherapy, [facility] smoking cessation group, and [facility] pharmacy smoking cessation clinic -Referral to [facility] 01/05/25. Discussed USPSTF recommends annual lung cancer screening with low dose CT in people who meet the following criteria: -ages 50 to 80 years. -have a 20 pack-year smoking history. -currently smoke cigarettes or quit within the past 15 years. -LDCT: na -ordered PFTs 01/05/2025 Assessment & Plan (12/17/2023 1:21 PM EDT): Cigg/day: 20 per day down to 3 -down to 3 cigarettes a day as of 12/17/2023 -Age started: 17 -Total years smokin -Pack year history: 17 Encouraged smoking cessation resources such as pharmacomtherapy, [facility] smoking cessation group, and [facility] pharmacy smoking cessation clinic -Referral to [facility] 12/11/2022 Discussed USPSTF recommends annual lung cancer screening with low dose CT in people who meet the following criteria: -ages 50 to 80 years. -have a 20 pack-year smoking history. -currently smoke cigarettes or quit within the past 15 years. -LDCT: na Assessment & Plan (12/11/2022 11:30 AM EDT): 20 cigarettes a day. -Pt is interested in starting Chantix. -Referral to [facility] 12/11/2022. Periodic paralysis 05/13/2012 Overview (12/11/2022): Episodes of periodic paralysis starting at age 17, last event 2006. During these episodes there is no documentation of electrolytes. He saw Dr. Jensen in July 2002 at [facility]. Workup for hypokalemic periodic paralysis and hyperkalemic periodic paralysis genetic testing was unremarkable. K at that time was 4.6 and TSH normal. He was started on acetazolamide which could benefit regardless of whether it was hyperkalemic normokalemic periodic paralysis. He has been off this for many years without episodes. Assessment & Plan (12/17/2023 11:25 AM EDT): Episodes of periodic paralysis starting at age 17, last event 2006. During these episodes there is no documentation of electrolytes. He saw Dr. Jensen in July 2002 at [facility]. Workup for hypokalemic periodic paralysis and hyperkalemic periodic paralysis genetic testing was unremarkable. K at that time was 4.6 and TSH normal. He was started on acetazolamide which could benefit regardless of whether it was hyperkalemic normokalemic periodic paralysis. He has been off this for many years without episodes. Assessment & Plan (12/11/2022 8:56 AM EDT): Episodes of periodic paralysis starting at age 17, last event 2006. During these episodes there is no documentation of electrolytes. He saw Dr. Jensen in July 2002 at [facility]. Workup for hypokalemic periodic paralysis and hyperkalemic periodic paralysis genetic testing was unremarkable. K at that time was 4.6 and TSH normal. He was started on acetazolamide which could benefit regardless of whether it was hyperkalemic normokalemic periodic paralysis. He has been off this for many years without episodes. Resolved Problems Problem Noted Date Diagnosed Date Resolved Date Epidermoid cyst 12/17/2023 09/01/2024 Overview (12/17/2023): On scrotum, increasing in size. No evidence of infection. -referral to surgeon to have removed 12/17/2023 Assessment & Plan (12/17/2023 1:22 PM EDT): On scrotum, increasing in size. No evidence of infection. -referral to surgeon to have removed 12/17/2023 Scrotal mass 12/11/2022 09/01/2024 Overview (12/11/2022): Will schedule next available date for removal procedure. Assessment & Plan (12/17/2023 11:25 AM EDT): Will schedule next available date for removal procedure. Assessment & Plan (12/11/2022 11:33 AM EDT): Will schedule next available date for removal procedure. Encounters Date Type Department Care Team Description 03/09/2025 [address] [place] [address] Roya Tsai PharmD 02/23/2025 [address] [place] [place] [address] Adriana Lundberg MD 01/18/2025 12:00 PM EDT [address]medicine [address] [place] [address] Roya Tsai PharmD Tobacco dependence syndrome (Primary Dx) 01/13/2025 Telephone [facility] [place] [address] Adriana Lundberg MD Lung screening referral 01/10/2025 Results Follow-Up [address] [place] [address] Adriana Lundberg MD Lipid Panel, Standard, Basic Metabolic Panel, HIV-1/2 Antigen and Antibodies, Fourth Generation, with Reflexes, Additional followed-up results: 2 01/05/2025 2:15 PM EDT [address] [facility] [address] Adriana Lundberg MD Tobacco dependence syndrome (Primary Dx); Cannabis dependence (CMS/HCC); Renal calculi; Elevated cholesterol; Overweight (BMI 25.0-29.9); Dietary counseling; Exercise counseling; Routine screening for STI (sexually transmitted infection); Other specified health status 01/05/2025 Travel 01/04/2025 Telephone [facility] [address] Adriana Lundberg MD Chart Prep 12/28/2024 Patient Outreach [facility] [address] [place] [address] Adriana Lundberg MD Pre-visit Planning (SDOH negative. Tobacco screening positive.) from Last 3 Months Immunizations Immunization Administration Dates Next Due DTaP 04/16/1995, 4,05/01/1992,1990,05/11/1988,1987 Hep A, Adult 12/17/2023,12/11/2022 Hep B, Adolescent or Pediatric 09/05/1997,1995,02/20/1995 Hib ([facility]) 04/16/1995,09/14/1994,05/11/1991 IPV 04/16/1995, 2,04/11/1991,1987,1987 Influenza injectable quadriv alent IIV4 with preservative 10/14/2019 Influenza injectable quadriv alent preservative free 06/08/2020,08/27/2018,05/21/2017 Influenza, IIV3, injectable 06/06/2011 Influenza, Split (incl. nusrat fied surface antigen) 04/19/2013,05/13/2012 MMR 03/26/1994,04/11/1991 Pfizer Covid-19 Vaccine 12+ 12/17/2023 Pfizer Covid-19 Vaccine 12+ Bivalent 12/11/2022 Pneumococcal Conjugate PCV 20 12/17/2023 Tdap 12/11/2022,06/06/2011 Varicella 11/23/1999 Family History Medical History Relation Name Comments Heart disease Father Diabetes Paternal Grandmother Heart disease Paternal Grandmother Relation Name Status Comments Father Paternal Grandmother Social History Tobacco Use Types Packs/Day Years Used Date Smoking Tobacco: Every Day Cigars Passive Smoke Exposure: Current Smokeless Tobacco: Never Tobacco Cessation:Ready to Q uit: Yes; Counseling Given: Yes Depression Answer Date Recorded Patient Health Questionnaire-9 Score 0 01/05/2025 Patient Health Questionnaire-9 Score 0 01/05/2025 Last PHQ-9: Questionnaire Data Not on file 0 01/05/2025 Housing Stability Answer Date Recorded What is your housing situation today? I have luiza borrego 12/28/[address] you li ve. Do you have problems with any of the following? None of the above 12/28/2024 Food Insecurity Answer Date Recorded Within the past 12 months, y ou worried that your food would run out before you got money to buy more: Never True 12/28/2024 Within the past 12 months,th e food you bought just didn't last and you didn't have enough money to get more: Never True Transportation Answer Date Recorded In the past 12 months, has l ack of transportation kept you from medical appts, meetings, work or from getting things needed for daily living? No 12/28/2024 Utilities Answer Date Recorded In the past 12 months, has t he electric, gas, oil or water company threatened to shut off services in your home? No 12/28/2024 Depression Answer Date Recorded Patient Health Questionnaire-2 Score 0 01/05/2025 Internet Access Answer Date Recorded Internet Access Q1 Yes 12/28/2024 Internet Access Q2 Not on file 12/28/2024 Sex and Gender Information Value Date Recorded Sex Assigned at Male 06/10/2022 10:15 AM EDT Legal Sex Male 10:15 AM EDT Gender Identity Male 06/10/2022 10:15 AM EDT Sexual Orientation Straight 06/10/2022 10 :15 AM EDT Last Filed Vital Signs Vital Sign Reading Time Taken Comments Blood Pressure 130/86 01/05/2025 1:56 PM EDT Pulse 105 01/05/2025 1:56 PM EDT Temperature 35.8 C (96.5 F) 01/05/2025 1:56 PM EDT Respiratory Rate 20 01/05/2025 1:56 PM EDT Oxygen Saturation 96% 01/05/2025 1:56 PM EDT Inhaled Oxygen Concentration - - Weight 68.5 kg (151 lb) 01/05/2025 1:56 PM EDT Height 160 cm (5' 3 ) 01/05/2025 1:56 PM EDT Body Mass Index 26.75 01/05/2025 1:56 PM EDT Plan of Treatment Health Maintenance Due Date Last Done Comments HPV Vaccines (1 - Male 3-dose series) 2002 COVID-19 Vaccine ( - season) 2024 12/17/2023, 12/11/2022 Influenza Vaccine (#1) 2025 0, 10/14/2019, 08/27/2018, Additional history exists SDOH Screening 12/28/2025 12/28/2024 Alcohol/Substance Use Screening 01/05/2026 01/05/2025 Depression Screening 01/05/2026 01/05/2025, 01/06/20 Disability Screening 01/05/2026 01/05/2025 Family Planning (PISQ) 01/05/2026 01/05/2025 Tobacco Screening 01/19/2026 01/19/2025 Lipid Panel 01/08/2030 01/08/2025, 0 03/2024, 12/20/2022 DTaP/Tdap/Td Vaccines (8 - Td or Tdap) 12/11/2032 12/11/2022, 06/06/2011, 04/16/1995, Additional history exists Zoster Vaccines (1 of 2) 2037 RSV Patients and Patients Aged 60 years or older (1 - 1-dose 75+ series) 2062 HIB Vaccines Completed 04/16/1995, 0 11/1994, 05/11/1991 IPV Vaccines Completed 04/16/1995, 03/12, 04/11/1991, Additional history exists Hepatitis B Vaccines Completed 09/05/1997, 04/07/1996, 02/20/1995 Hepatitis A Vaccines Aged Out 12/17/2023, 12/12/19 23 No longer eligible based on patient's age to complete this topic Pneumococcal Vaccine: Pediatrics (0 to 5 Years) and At-Risk Patients (6 to 49) Years Completed 12/17/2023 HIV Screening Completed 01/08/2025, 050 03/2024, 12/20/2022 Hepatitis C Screening Completed 01/08/2025 , 12/17/2023, 12/20/2022 Meningococcal B Vaccine Aged Out No l onger eligible based on patient's age to complete this topic Meningococcal Vaccine Aged Out No christopher grupo eligible based on patient's age to complete this topic RSV under 20 months Aged Out No longe r eligible based on patient's age to complete this topic Rotavirus Vaccines Aged Out No longer eligible based on patient's age to complete this topic Procedures Procedure Name Priority Date/Time Associated Diagnosis Comments CYTOPATH-CELL ENHANCED Routine 02/24/2025 5:08 PM EDT Dietary counseling RPR (MONITOR) W/REFL TITER Routine 01/08/2025 8:36 AM EDT Routine screening for STI (sexually transmitted infection) HEPATITIS C AB W/REFL TO HCV RNA, QN, PCR Routine 01/08/2025 8:36 AM EDT Routine screening for STI (sexually transmitted infection) HIV 1/2 ANTIGEN/ANTIBODY, FOURTH GENERATION W/RFL Routine 01/08/2025 8:36 AM EDT Routine screening for STI (sexually transmitted infection) BASIC METABOLIC PANEL Routine 01/08/2025 8:36 AM EDT Renal calculi LIPID PANEL, STANDARD Routine 01/08/2025 8:36 AM EDT Elevated cholesterol CHLAMYDIA/N. GONORRHOEAE RNA, TMA, UROGENITAL Routine 01/08/2025 8:35 AM EDT Routine screening for STI (sexually transmitted infection) from Last 3 Months Results * Cytopath-cell enhanced (02/24/2025 5:08 PM EDT) 02/24/2025 5:08 PM EDT 02/25/2025 7:47 AM EDT [facility] - 02/28/2025 10:24 AM EDT ----- ------- Name: Blane Duggan Age/Sex: 39/M : 1985 Unit#: [id number] Attend Dr: Karyn Morales [facility] Re02/24/25 Status: [facility] REF Location: [facility] Disch: ----- ------- SPEC : [id number] RECD: 02/25/25 STATUS: LIZANDRO AGUILAR NUM: [id number] JACQUELINE: 02/24/25 [facility] DR: Karyn Morales [facility] ENTERED: 02/25/25 SP TYPE: Cytology OTHR DR: Adriana Lundberg MD ORDERED: Cyto-enhanced Diagnosis Urine, cytology: Negative for high-grade urothelial carcinoma. COMMENT: Review of the cytology preparation demonstrates a mildly cellular specimen composed of squames and urothelial cells. Red blood cells are noted. There is no significant atypia seen. Clinical History Microscopic hematuria Material Received Urine Gross Description Received is 50 cc of cloudy yellow fluid from which a ThinPrep slide is prepared. IHC S/NG Disclaimer NOTE: Unless otherwise stated, all tissue is formalin-fixed and paraffin-embedded. Some or all of the immunohistochemical tests reported herein may have been developed and their performance characteristics determined by [facility]. They have not been cleared or approved by the U.S. Food and Drug Administration (FDA). However, the FDA has determined that such clearance or approval is not necessary. This laboratory is certified under the Clinical Laboratory Improvement Amendments of 1988 (CLIA) as qualified to perform high complexity clinical laboratory testing. Copies To: Adriana Lundberg MD [address] [address] Karyn Morales [facility] [address] [place] [address] [address] [place] [address] [email or web address] for childrenCorcept Therapeutics CONTINUED ON NEXT PAGE ----- ------- Name: Blane Duggan Age/Sex: 39/M : 1985 Unit#: [id number] Attend Dr: Karyn Morales [facility] Re02/24/25 Status: [facility]P [facility] Disch: ----- ------- SPEC : [id number] RECD: 02/25/25 STATUS: LIZANDRO AGUILAR NUM: [id number] JACQUELINE: 02/24/25 [facility] DR: Karyn Morales [facility] ENTERED: 02/25/25 SP TYPE: Cytology OTHR DR: Adriana Lundberg MD ORDERED: Cyto-enhanced ----- ------- Signed (signature on file) Jasmyn Tomlin MD 02/28/25 1024 ----- ------- END OF REPORT Generic External Data Provider LAB CYTOLOGY ORDE RABLES Final Result [facility] [address] [place] [address] [phone] * Hepatitis C Antibody with Reflex to HCV, RNA, Quantitative, Real-Time PCR (01/08/2025 8:36 AM EDT) Hepatitis C Antibody Nonreactive Nonreactive [facility] Comment:Antibodies to HCV no t detected; does not exclude early acuteHCV infection. Blood Venous blood specimen / Unknown 01/08/2025 8:36 AM EDT 01/08/2025 8:37 AM EDT Adriana Lundberg MD LAB BLOOD ORDERABLES Final Result Performing Organization Address [facility]/ZIP Co de Phone Number [facility] [address] [place] [address] [phone] * RPR (Monitor) with Reflex to??Titer (01/08/2025 8:36 AM EDT) RPR (Monitor) w/Refl Titer NON-REACTI VE NON-REACT LACY [facility] Comment:THIS TEST WAS PERFOR MED AT:[employer] [place] [phone] CORREIA MD Rapid Plasma Reagin Ab Titer TNP [facility] Blood Venous blood specimen / Unknown 01/08/2025 8:36 AM EDT 01/08/2025 8:37 AM EDT Adriana Lundberg MD LAB BLOOD ORDERABLES Final Result Performing Organization Address [facility]/ZIP Co de Phone Number [facility] [address] [place] [address] [phone] * HIV-1/2 Antigen and Antibodies, Fourth Generation, with Reflexes (01/08/2025 8:36 AM EDT) HIV AB/AG Nonreactive Nonreactive [facility] Comment:HIV-1 p24 Ag and/or HIV-1/HIV-2 Ab not detected.A test result that is nonreactive does not exclude thepossibility of exposure to or infection with HIV-1 and/orHIV-2. Nonreactive results in this assay for individualswith prior exposure to HIV-1 and/or HIV-2 may be due toantigen and antibody levels that are below the limit ofdetection of this assay.The [employer] HIV Ag/Ab Combo assay result andsupplemental assay results should be interpreted inconjunction with the patient's clinical presentation,history and other laboratory results. If the results areinconsistent with clinical evidence, additional testing issuggested to confirm the result. Blood Venous blood specimen / Unknown 01/08/2025 8:36 AM EDT 01/08/2025 8:37 AM EDT us Adriana Lundberg MD LAB BLOOD ORDERABLES Final Result [facility] [address] [place] [phone] * (ABNORMAL) Lipid Panel, Standard (01/08/2025 8:36 AM EDT) Triglycerides 238(H) <150 mg/dL [facility] Comment:Desirable Triglyceri de: less than 150 mg/dLBorderline High Triglyceride 150-199 mg/dLHigh Triglyceride: 200-499 mg/dLVery High Triglyceride: greater than or equal to 5OO mg/dL Cholesterol 201(H) <200 mg/dL [facility] Comment:Desirable Cholestero l: less than 200 mg/dLBorderline High Cholesterol: 200-239 mg/dLHigh Cholesterol: greater than 239 mg/dL LDL Cholesterol Calculated 122(H) <100 mg/dL [facility] Comment:Desirable LDL: less than 100 mg/dLNear Optimal/Above Optimal LDL: 110- 129 mg/dLBorderline High LDL: 130-159 mg/dLHigh LDL: 160-189 mg/dLVery High LDL: greater than or equal to 190 mg/dL HDL Cholesterol 32(L) >40 mg/dL [facility] Comment:Desirable HDL: great er than 40 mg/dL Note: This HDL assay may give artificially low results in patients with liver disease. Blood Venous blood specimen / Unknown 01/08/2025 8:36 AM EDT 01/08/2025 8:37 AM EDT Adriana Lundberg MD LAB BLOOD ORDERABLES Final Result Performing Organization Address [facility]/State/ZIP Co de Phone Number [facility] [address] [place] [phone] * (ABNORMAL) Basic Metabolic Panel (01/08/2025 8:36 AM EDT) Sodium 142 135 - 145 mmol/L [facility] Potassium 4.0 3.3 - 5.1 mmol/L [facility] Chloride 109(H) 96 - 108 mmol/L [facility] Carbon Dioxide 24 22 - 29 mmol/L [facility] Anion Gap 13 12 - 20 [facility] Urea Nitrogen (BUN) 18(H) 9 - 16 mg/dL [facility] Creatinine, Serum 1.12 0.5 - 1.4 mg/dL [facility] Estimated Glomerular Filt Rate >60 [facility] Comment:Chronic Kidney Disea se: Estimated GFR < 60 mL/min/1.72f3Dwsjjh Kidney Disease: Estimated GFR < 15 mL/min/1.73m2 Glucose 90 60 - 115 mg/dL [facility] Calcium 9.7 8.4 - 10.2 mg/dL [facility] Blood Venous blood specimen / Unknown 01/08/2025 8:36 AM EDT 01/08/2025 8:37 AM EDT Adriana Lundberg MD LAB BLOOD ORDERABLES Final Result [facility] [address] [place] [phone] * Chlamydia/N. Gonorrhoeae RNA, TMA, Urine (01/08/2025 8:35 AM EDT) CT PCR NOT DETECTED Not Detect. [facility] Comment:A not detected test result does not exclude the possibilityof infection because test results can be affected byimproper specimen collection, concurrent antibiotic therapy,or the number of organisms in the specimen which may bebelow the sensitivity of the test. As with many diagnostictests, results from the Xpert CT/NG assay should beinterpreted in conjunction with other laboratory andclinical data available to the clinician.Xpert CT/NG performance has not been evaluated in patientsless than 14 years of age. The assay should not be used forthe evaluationof suspected sexual abuse or for other medico-legalindications. Additional testing is recommended in anycircumstance when false positive or false negative resultscould lead to adverse medical, social or psychologicalconsequences. NG PCR NOT DETECTED Not Detect. [facility] Comment:A not detected test result does not exclude the possibilityof infection because test results can be affected byimproper specimen collection, concurrent antibiotic therapy,or the number of organisms in the specimen which may bebelow the sensitivity of the test. As with many diagnostictests, results from the Xpert CT/NG assay should beinterpreted in conjunction with other laboratory andclinical data available to the clinician.Xpert CT/NG performance has not been evaluated in patientsless than 14 years of age. The assay should not be used forthe evaluationof suspected sexual abuse or for other medico-legalindications. Additional testing is recommended in anycircumstance when false positive or false negative resultscould lead to adverse medical, social or psychologicalconsequences. Urine (Urine, Random) 01/08/2025 8:35 AM EDT 01/08/2025 9:16 AM EDT Narrative [facility] - 01/08/2025 11:44 AM EDT Urine Adriana Lundberg MD LAB MICROBIOLOGY - GENERAL ORDERABLES Final Result [facility] [address] [place] [address] [phone] from Last 3 Months Insurance [facility] C3 Advance Directives Documents on File Type Date Recorded Patient Senior Php Web Developer Expl anation Advance Directives and Living Will 01/06/2025 2:08 PM Health Care PROXY Care Teams Dev Ops Engineer Relationship Specialty Start Date End Date Adriana Lundberg MD [address] [place] [address] PCP - General Family Medicine 08/11/18 Elmer Crystal MD [address] [place] [address] [address] [place] [address] General Surgery 09/01/24 Roya Tsai, Jennifer [address] [place] [address] Pharmacist Internal Medicine 01/19/25 Karyn Morales NP [address] [place] [id number] Urology 03/02/25
--- OUTSIDE RECORDS SUMMARY | 2025-03-24 15:52 | XMS_ITS | Clinical Summary ---
Author Organization [facility] Address [address] [place] [address] Phone Care Team Providers Care Retail Specialist Name Role Phone Physician, No Pcp Primary [...] COVID-19 Vaccine ( season) 2024 12/17/2023, 12/11/2022 Depression Screening 08/11/2024 Social Influencers of Health Screening 09/21/2024 Influenza Vaccine (#1) 2025 0, 10/14/2019, 08/27/2018, [...] to complete this topic Insurance [place] Care Teams Retail Specialist Relationship Specialty Start Date End Date Physician, No Pcp PCP - General 09/21/24
[2025-03-24 16:51] VITALS: PULSE 69; O2SAT 98
== END 2025-03-24 15:30 | disposition home or self-care (01) ==
LOC: HO.RESP 15:29
PROVIDERS: PCP Family Medicine; Visit Provider Family Medicine
DX: F17.210 Nicotine dependence, cigarettes, uncomplicated (principal); R05.9 Cough, unspecified
CPT/HCPCS: 94010; 94640; 94727; 94729

== ENCOUNTER → 2025-03-24 16:12 | Outpatient (BNV) | payer MEDICAID, SELFPAY | PROVIDERS: PCP Family Medicine; Visit Provider Internal Medicine Pulmonary Disease | DX: R05.9 Cough, unspecified (principal) | CPT/HCPCS: 94060; 94727; 94729 ==